=== PATIENT | female | born 2000 | race African-American/Black ===

== ENCOUNTER 2022-06-20 22:49 | Emergency (ER) | payer MEDICAID ==
[~2022-06-20] VITALS: Ht 170.2 cm; Wt 55.0 kg
[2022-06-21] MEDS: ONDANSETRON 4MG ODT PO ONE (02:30)
[2022-06-21 02:35] LABS: BASOPHILS % 0.4 % (0.0-2.0); EOSINOPHILS % 0.7 % (0.0-5.0); HEMATOCRIT. 39.6 % (36.0-48.0); HEMOGLOBIN. 13.2 g/dL (12.0-16.0); LYMPHOCYTES % 41.3 % (20.0-50.0); MEAN CORPUSCULAR HEMOGLOBIN 33.7 pg (28.0-32.0); MEAN CORPUSCULAR VOLUME 101.2 fL (81.0-99.0); MEAN PLATELET VOLUME 10.3 fl (7.4-10.4); MONOCYTES % 6.4 % (2.0-8.0); NEUTROPHILS % 51.2 % (40.0-76.0); PLATELET 175 x1000/uL (130-400); RED BLOOD CELL COUNT 3.91 mill/uL (4.2-5.4); RED CELL DISTRIBUTION WIDTH 12.2 % (11.6-14.6)
[2022-06-21 02:42] LABS: CHLORIDE 107 mEq/L (98-107)
[2022-06-21 02:44] LABS: HCG SCREEN NEGATIVE
[2022-06-21 02:45] LABS: CLARITY URINE CLOUDY (CLEAR); COLOR URINE YELLOW (YELLOW); KETONES URINE NEGATIVE (NEGATIVE); LEUKOCYTE ESTERASE URINE 3+ (NEGATIVE); NITRITE URINE NEGATIVE (NEGATIVE); OCCULT BLOOD URINE NEGATIVE (NEGATIVE); PH URINE 5.5 (4.5-8.0); PROTEIN URINE NEGATIVE (NEGATIVE); SPECIFIC GRAVITY URINE 1.014 (1.005-1.030); UROBILINOGEN URINE 0.2 E.U./dL (0.2-1.0)
[2022-06-21 03:08] LABS: *AMPHETAMINES SCREEN URINE NEGATIVE (NEGATIVE); *BARBITURATES SCREEN URINE NEGATIVE (NEGATIVE); *BENZODIAZEPINES SCREEN URINE NEGATIVE (NEGATIVE); *COCAINE SCREEN URINE NEGATIVE (NEGATIVE); METHADONE URINE SCREEN NEGATIVE (NEGATIVE); OPIATES URINE SCREEN NEGATIVE (NEGATIVE); PHENCYCLIDINE URINE SCREEN NEGATIVE (NEGATIVE)
[2022-06-21 03:09] LABS: CANNABINOID URINE SCREEN PRESUMTIVE POSITIVE (NEGATIVE)
[2022-06-21] MEDS ORDERED: CEPH250C2 MT (03:27)
[2022-06-21] MEDS ORDERED: ONDA4TAB11 PO (03:27)
[2022-06-21 03:55] VITALS: BP 130/81
== END 2022-06-21 03:55 | disposition home or self-care (01) ==
LOC: ER 22:49
DX: N39.0 Urinary tract infection, site not specified (principal); R11.0 Nausea; F12.10 Cannabis abuse, uncomplicated; Z97.5 Presence of (intrauterine) contraceptive device
CPT/HCPCS: 36415; 80053; 80305; 81003; 81025; 83690; 84703; 85025; 87086; 87426; 99283; Q0162